=== PATIENT | male | born 1930 | race Caucasian/White ===

== ENCOUNTER 2017-06-13 08:02 | Observation (INO) | payer MEDICARE, BC ==
[~2017-06-13] VITALS: Ht 182.9 cm; Wt 92.1 kg
[~2017-06-13 08:02] MED LIST: ATOR10TA15 PO; AVOD0.5C PO; MULT-65 PO; NAPR220T95 PO; VITA200013 PO
[2017-06-13 08:05] VITALS: BP 221/89; PULSE 78; RESP 18; TEMP 98.4; O2SAT 98
[2017-06-13] MEDS ORDERED: VITA250C3 CHEW (08:19)
[2017-06-13 08:22] VITALS: BP 184/76
[2017-06-13] MEDS ORDERED: TETANUS/DIPHTHERIA TOXOID ADULT 0.5 ML VIAL IM ONE (08:30)
--- NOTE | 2017-06-13 08:36 | PD ---
HPI Chief Complaint: Bite or Sting Time Seen by Provider: 08:14 Travel History International Travel<30 days: No Contact w/Intl Traveler<30days: No Traveled to known affect area: No History of Present Illness HPI 86yo M with PMH of HLD and BPH presents to the ED with c/o possible snake bite 2 days ago. Pt said a brown snake about 1 foot long fell on his right arm 2 days ago. He did not see a skin break until yesterday in his right forearm and it bled after he tried to clean it. Bleeding has stopped. Denies any fever, chest pain, sob, n/v, abdominal pain, focal weakness or numbness. Pt is not up to date on tetanus. Feels a little lightheaded right now. PFSH Past Medical History Cancer: No Cardiovascular Problems: No High Cholesterol: Yes Diabetes: No Diminished Hearing: No Genitourinary: Yes (prostate issues) Immune Disorder: No Musculoskeletal: No Neurologic: No Psychiatric: No Reproductive: No Respiratory: No Thyroid Disease: No Influenza Vaccination: Yes ?: Not Past Surgical History Abdominal Surgery: No Cardiac Surgery: No Ear Surgery: No Endocrine Surgery: No Eye Surgery: Yes Genitourinary Surgery: No Gynecologic Surgery: No Oral Surgery: No Pacemaker: No Thoracic Surgery: No Other Surgery: Yes (CATARACT RIGHT EYE) Social History Alcohol Use: Yes ("A FEW BEERS EVERYDAY") Tobacco Use: No Substance Use: No Allergies-Medications (Allergen,Severity, Reaction): Coded Allergies: No Known Allergies (Unverified , 06/13/17) Reported Meds & Prescriptions Reported Meds & Active Scripts Active Avodart (Dutasteride) 0.5 Mg Cap 0.5 Mg PO DAILY Reported Vitamin C (Ascorbic Acid) 250 Mg Chew 500 Mg CHEW DAILY Atorvastatin (Atorvastatin Calcium) 10 Mg Tab 5 Mg PO HS Multi-Vitamin Daily (Multiple Vitamin) 1 Tab Tab 1 Tab PO DAILY Vitamin D (Cholecalciferol) 2,000 Unit Cap 1 Cap PO DAILY Review of Systems Except as stated in HPI: all other systems reviewed are Neg Physical Exam Narrative GENERAL: 86yo M not in distress. SKIN: Focused skin assessment warm/dry. HEAD: Atraumatic. Normocephalic. EYES: Pupils equal and round. No scleral icterus. No injection or drainage. ENT: No nasal bleeding or discharge. Mucous membranes pink and moist. NECK: Trachea midline. No JVD. CARDIOVASCULAR: Regular rate and rhythm. No murmur appreciated. RESPIRATORY: No accessory muscle use. Clear to auscultation. Breath sounds equal bilaterally. GASTROINTESTINAL: Abdomen soft, non-tender, nondistended. No rebound tenderness or guarding. MUSCULOSKELETAL: Right forearm: +Small skin break with skin discoloration about 3cm by 3cm. No fluctuance. Sensation intact. Forearm compartment soft. Distal pulses intact. NEUROLOGICAL: Awake and alert. No obvious cranial nerve deficits. Motor grossly within normal limits. Normal speech. PSYCHIATRIC: Appropriate mood and affect; insight and judgment normal. Data Data Last Documented VS Vital Signs Date Time Temp Pulse Resp B/P (MAP) Pulse Ox O2 Delivery O2 Flow Rate FiO2 06/13/17 09:15 68 18 143/67 (92) 67 18 162/79 (106) 72 18 166/83 (110) 06/13/17 08:05 98.4 98 Orders Orders Electrocardiogram (06/13/17 ) Blood Glucose (06/13/17 08:22) Tetanus/Diphtheria Tox Adult (Tetanus/Di (06/13/17 08:30) Complete Blood Count With Diff (06/13/17 08:48) Prothrombin Time / Inr (Pt) (06/13/17 08:48) Act Partial Throm Time (Ptt) (06/13/17 08:48) Fibrinogen (06/13/17 08:48) Basic Metabolic Panel (Bmp) (06/13/17 08:54) Orthostatic Blood Pressure (06/13/17 08:54) Admit Order (Ed Use Only) (06/13/17 09:44) Labs Laboratory Tests Test 06/13/17 08:55 White Blood Count 6.2 TH/MM3 Red Blood Count 3.95 MIL/MM3 Hemoglobin 13.0 GM/DL Hematocrit 38.8 % Mean Corpuscular Volume 98.2 FL Mean Corpuscular Hemoglobin 33.0 PG Mean Corpuscular Hemoglobin Concent 33.6 % Red Cell Distribution Width 13.3 % Platelet Count 170 TH/MM3 Mean Platelet Volume 8.7 FL Neutrophils (%) (Auto) 62.7 % Lymphocytes (%) (Auto) 20.3 % Monocytes (%) (Auto) 7.9 % Eosinophils (%) (Auto) 8.3 % Basophils (%) (Auto) 0.8 % Neutrophils # (Auto) 3.9 TH/MM3 Lymphocytes # (Auto) 1.3 TH/MM3 Monocytes # (Auto) 0.5 TH/MM3 Eosinophils # (Auto) 0.5 TH/MM3 Basophils # (Auto) 0.0 TH/MM3 CBC Comment DIFF FINAL Differential Comment Prothrombin Time 10.7 SEC Prothromb Time International Ratio 1.0 RATIO Activated Partial Thromboplast Time 26.2 SEC Fibrinogen 321 mg/dL Blood Urea Nitrogen 17 MG/DL Creatinine 0.87 MG/DL Random Glucose 101 MG/DL Calcium Level 8.7 MG/DL Sodium Level 140 MEQ/L Potassium Level 4.1 MEQ/L Chloride Level 106 MEQ/L Carbon Dioxide Level 27.3 MEQ/L Anion Gap 7 MEQ/L Estimat Glomerular Filtration Rate 83 ML/MIN [facility] Medical Decision Making Medical Screen Exam Complete: Yes Emergency Medical Condition: Yes Interpretation(s) EKG: NSR 68bpm. Normal axis. No ST segment elevation or depression. 1st AV block. Differential Diagnosis Dry snake bike vs. skin break Narrative Course 86yo M with possible snake bike in right forearm. Pt does have some lightheadedness. Orthostatic negative. Tetanus updated. Pt did have an episode of profuse bleeding when he tried to clean it that has stopped. He is not on any anticoagulation. Poison control was contacted for recommendations. The summer clerk recommended to check platelet, coagulation panel and fibrinogen. He recommends observation for 8 hours even if labs were normal and to repeat them and see what the trend is. Labs reviewed, normal platelet. No leukocytosis. BMP unremarkable. Coags normal. Fibrinogen pending. Discussed with patient the recommendations and he agrees with plan. Discussed with Dr. Sutton's PA and accepted to his service. Diagnosis Primary Impression: Snake bite Qualified Codes: W59.11XA - Bitten by nonvenomous snake, initial encounter Admitting Information Admitting Physician Requests: Observation Renetta Platt DO Jun 13, 2017 08:36
[2017-06-13 09:01] LABS: AUTOMATED NEUTROPHIL # 3.9 TH/MM3 (1.8-7.7); BASOPHIL % 0.8 % (0.0-2.0); EOSINOPHIL # 0.5 TH/MM3 (0-0.4); EOSINOPHIL % 8.3 % (0.0-4.0); HEMATOCRIT 38.8 % (39.0-51.0); HEMO FLAGS DIFF FINAL; LYMPH % 20.3 % (9.0-44.0); LYMPHOCYTE # 1.3 TH/MM3 (1.0-4.8); MEAN CELL VOLUME 98.2 FL (80.0-100.0); MEAN CORPUSCULAR HGB CONC 33.6 % (32.0-36.0); MONO % 7.9 % (0.0-8.0); NEUT % 62.7 % (16.0-70.0); PLATELET COUNT 170 TH/MM3 (150-450); RED BLOOD COUNT 3.95 MIL/MM3 (4.50-5.90); RED CELL DISTRIBUTION WIDTH 13.3 % (11.6-17.2); WHITE BLOOD COUNT 6.2 TH/MM3 (4.0-11.0)
[2017-06-13 09:10] LABS: POTASSIUM 4.1 MEQ/L (3.5-5.1)
[2017-06-13 09:12] LABS: BICARBONATE 27.3 MEQ/L (21.0-32.0)
[2017-06-13 09:14] LABS: APTT (PATIENT) 26.2 SEC (24.3-30.1); PROTHROMBIN TIME - PATIENT 10.7 SEC (9.8-11.6)
[2017-06-13 09:15] VITALS: BP_SYST 143; BP_SYST 162; BP_SYST 166; BP_DIAS 67; BP_DIAS 79; BP_DIAS 83; RESP 18
[2017-06-13] MEDS ORDERED: LACTULOSE SYRUP 20 GM/30 ML CUP PO PRN (10:30)
[2017-06-13] MEDS ORDERED: NALOXONE HCL 0.4 MG/ML AMP IV PRN (10:30)
[2017-06-13] MEDS ORDERED: SODIUM CHLORIDE 0.9% FLUSH 10 ML FLUSH IV FLUSH PRN (10:30)
[2017-06-13] MEDS ORDERED: ACETAMINOPHEN 325 MG TAB PO PRN (10:30)
[2017-06-13 10:45] VITALS: BP 160/86; PULSE 65; RESP 20; TEMP 97.2; O2SAT 99
[2017-06-13] MEDS ORDERED: MAGNESIUM HYDROXIDE SUSP 30 ML CUP PO PRN (11:00)
[2017-06-13] MEDS ORDERED: SENNOSIDES 8.6 MG TAB PO PRN (11:00)
[2017-06-13] MEDS ORDERED: ONDANSETRON HCL 4 MG/2 ML VIAL IVP PRN (11:00)
[2017-06-13] MEDS ORDERED: PILL SPLITTER OTHER PRN (11:00)
[2017-06-13] MEDS ORDERED: BISACODYL 10 MG SUPP RECTAL PRN (11:00)
[2017-06-13 15:12] LABS: AUTOMATED NEUTROPHIL # 4.3 TH/MM3 (1.8-7.7); BASOPHIL # 0.1 TH/MM3 (0-0.2); BASOPHIL % 0.7 % (0.0-2.0); EOSINOPHIL # 0.6 TH/MM3 (0-0.4); EOSINOPHIL % 7.5 % (0.0-4.0); HEMATOCRIT 43.6 % (39.0-51.0); HEMO FLAGS DIFF FINAL; LYMPH % 24.7 % (9.0-44.0); LYMPHOCYTE # 1.9 TH/MM3 (1.0-4.8); MEAN CORPUSCULAR HEMOGLOBIN 32.1 PG (27.0-34.0); MEAN CORPUSCULAR HGB CONC 32.5 % (32.0-36.0); MONO % 9.2 % (0.0-8.0); NEUT % 57.9 % (16.0-70.0); PLATELET COUNT 181 TH/MM3 (150-450); RED CELL DISTRIBUTION WIDTH 13.7 % (11.6-17.2); WHITE BLOOD COUNT 7.6 TH/MM3 (4.0-11.0)
[2017-06-13 15:31] LABS: POTASSIUM 4.3 MEQ/L (3.5-5.1)
[2017-06-13 15:33] LABS: APTT (PATIENT) 20.6 SEC (24.3-30.1); INTERNATIONAL NORMALIZED RATIO 0.9 RATIO; PROTHROMBIN TIME - PATIENT 10.3 SEC (9.8-11.6)
[2017-06-13 15:35] LABS: BICARBONATE 24.7 MEQ/L (21.0-32.0)
[2017-06-13 16:00] VITALS: BP 161/74; PULSE 59; RESP 20; TEMP 97.8; O2SAT 100
[2017-06-13 20:00] VITALS: BP 145/72; PULSE 68; RESP 20; TEMP 96; O2SAT 100
[2017-06-13] MEDS: DOCUSATE SODIUM 50 MG/SENNA 8.6 MG TAB PO SCH (20:28)
[2017-06-13] MEDS: FAMOTIDINE 20 MG TAB PO SCH (20:30)
[2017-06-13] MEDS: SODIUM CHLORIDE 0.9% FLUSH 10 ML FLUSH IV FLUSH SCH ×2 (20:30→20:32)
[2017-06-14] VITALS: BP 147/81; PULSE 65; RESP 20; TEMP 96.3; O2SAT 99
[2017-06-14 06:12] LABS: AUTOMATED NEUTROPHIL # 3.6 TH/MM3 (1.8-7.7); BASOPHIL % 0.7 % (0.0-2.0); EOSINOPHIL # 0.5 TH/MM3 (0-0.4); EOSINOPHIL % 8.5 % (0.0-4.0); HEMATOCRIT 39.7 % (39.0-51.0); HEMO FLAGS DIFF FINAL; LYMPH % 23.1 % (9.0-44.0); LYMPHOCYTE # 1.4 TH/MM3 (1.0-4.8); MEAN CELL VOLUME 99.3 FL (80.0-100.0); MEAN CORPUSCULAR HEMOGLOBIN 32.8 PG (27.0-34.0); MEAN CORPUSCULAR HGB CONC 33.1 % (32.0-36.0); MONO % 8.5 % (0.0-8.0); NEUT % 59.2 % (16.0-70.0); PLATELET COUNT 173 TH/MM3 (150-450); RED CELL DISTRIBUTION WIDTH 13.6 % (11.6-17.2)
[2017-06-14 06:20] LABS: POTASSIUM 4.6 MEQ/L (3.5-5.1)
[2017-06-14 06:24] LABS: BICARBONATE 28.8 MEQ/L (21.0-32.0)
[2017-06-14 06:26] LABS: APTT (PATIENT) 26.7 SEC (24.3-30.1); PROTHROMBIN TIME - PATIENT 10.8 SEC (9.8-11.6)
--- NOTE | 2017-06-14 07:38 | HHI.DS ---
Discharge Summary Admission Date Jun 13, 2017 at 09:45 Discharge Date: Jun 14, 2017 Admitting Diagnosis Snake bite (1) BPH (benign prostatic hypertrophy) with urinary obstruction ICD Codes: N40.1 - Benign prostatic hyperplasia with lower urinary tract symptoms; N13.8 - Other obstructive and reflux uropathy Status: Acute (2) Snake bite ICD Codes: W59.11XA - Bitten by nonvenomous snake, initial encounter Status: Acute Brief History A very pleasant 86yo gentleman with PMH of HLD and BPH presents to the ED with c /o possible snake bite 2 days ago. Pt said a brown snake about 1 foot long fell on his right arm 2 days ago. He did not see a skin break until yesterday in his right forearm and it bled after he tried to clean it. Bleeding has stopped. Denies any fever, chest pain, sob, n/v, abdominal pain, focal weakness or numbness. Pt is not up to date on tetanus. Feels a little lightheaded right now. CBC/BMP: 06/14/17 0515 06/14/17 0515 Significant Findings Laboratory Tests Test 06/13/17 08:55 06/13/17 15:03 06/14/17 05:15 Red Blood Count 3.95 MIL/MM3 (4.50-5.90) 4.40 MIL/MM3 (4.50-5.90) 4.00 MIL/MM3 (4.50-5.90) Hematocrit 38.8 % (39.0-51.0) Eosinophils (%) (Auto) 8.3 % (0.0-4.0) 7.5 % (0.0-4.0) 8.5 % (0.0-4.0) Eosinophils # (Auto) 0.5 TH/MM3 (0-0.4) 0.6 TH/MM3 (0-0.4) 0.5 TH/MM3 (0-0.4) Estimat Glomerular Filtration Rate 83 ML/MIN (>89) 78 ML/MIN (>89) 83 ML/MIN (>89) Monocytes (%) (Auto) 9.2 % (0.0-8.0) 8.5 % (0.0-8.0) Activated Partial Thromboplast Time 20.6 SEC (24.3-30.1) PE at Discharge GENERAL: alert and oriented SKIN: Warm and dry. Small area noted on forearm. clean and dry no signs of infection HEAD: Normocephalic. EYES: No scleral icterus. No injection or drainage. NECK: Supple, trachea midline. No JVD or lymphadenopathy. CARDIOVASCULAR: Regular rate and rhythm without murmurs, gallops, or rubs. RESPIRATORY: Breath sounds equal bilaterally. No accessory muscle use. GASTROINTESTINAL: Abdomen soft, non-tender, nondistended. MUSCULOSKELETAL: No cyanosis, or edema. BACK: Nontender without obvious deformity. No CVA tenderness. Hospital Course A very pleasant 86yo M with PMH of HLD and BPH presents to the ED with c/o possible snake bite 2 days ago. Pt said a brown snake about 1 foot long fell on his right arm 2 days ago while he was opening a door. He did not see a skin break until the next day on his right forearm and it bled after he tried to clean it. Bleeding has stopped. Denies any fever, chest pain, sob, n/v, abdominal pain, focal weakness or numbness. Pt is not up to date on tetanus. He did receive his tetanus vaccine and poision control was called. Recommended to obtain coagulation studies with the extra bleeding. PT/PTT and fibrinogen all rachana. Wound site on right arm is clean and dry with no signs of infection. He was instructed to follow up in office in 1 week. Discharge Disposition: Discharge Home Discharge Instructions DIET: Follow Instructions for: As Tolerated, No Restrictions Activities you can perform: Regular-No Restrictions Follow up Referrals: PCP Follow-up - 1 Week @ [facility] Continued Medications: Ascorbic Acid (Vitamin C) 250 Mg Chew 500 MG CHEW DAILY for Nutritional Supplement, #30 TAB 0 Refills Atorvastatin (Atorvastatin) 10 Mg Tab 5 MG PO HS for Cholesterol Management, #30 TAB 0 Refills Cholecalciferol (Vitamin D) 2,000 Unit Cap 1 CAP PO DAILY Dutasteride (Avodart) 0.5 Mg Cap 0.5 MG PO DAILY for BPH, #90 CAP 3 Refills Multiple Vitamin (Multi-Vitamin Daily) 1 Tab Tab 1 TAB PO DAILY for Nutritional Supplement, TAB 0 Refills Additional Information Keep wound site clean and dry. Sandra MarteP Jun 14, 2017 07:38
[2017-06-14 08:00] VITALS: BP 152/81; PULSE 67; RESP 18; TEMP 97.8; O2SAT 100
[2017-06-14] MEDS: SODIUM CHLORIDE 0.9% FLUSH 10 ML FLUSH IV FLUSH SCH (08:26)
[2017-06-14] MEDS: FAMOTIDINE 20 MG TAB PO SCH (08:26)
[2017-06-14] MEDS: DOCUSATE SODIUM 50 MG/SENNA 8.6 MG TAB PO SCH (08:26)
[2017-06-14] MEDS ORDERED: FINASTERIDE 5 MG TAB PO SCH (09:00)
--- NOTE | 2017-06-14 17:54 | EKG ---
Date Performed: 06/13/2017 Time Performed: 08:27:36 PTAGE: 86 years EKG: Sinus rhythm WITH SINUS ARRHYTHMIA WITH FIRST DEGREE AV BLOCK IA interval is slightly increased from the old trac ing ABNORMAL ECG PREVIOUS TRACING : 06/20/2012 15.25 DOCTOR: Jeff Raymond Interpretating Date/Time 06/14/2017 17:53:22
== END 2017-06-14 09:32 | disposition home or self-care (01) ==
LOC: PHED 08:02 → PHEDA 09:45 → PH3B 10:14
PROVIDERS: ADMIT Family Medicine; ATTEND Family Medicine
DX: N40.1 Benign prostatic hyperplasia with lower urinary tract symptoms (principal); N13.8 Other obstructive and reflux uropathy; W59.11XA Bitten by nonvenomous snake, initial encounter; E78.00 Pure hypercholesterolemia, unspecified; I49.8 Other specified cardiac arrhythmias; I44.0 Atrioventricular block, first degree
CPT/HCPCS: 80048; 85025; 85384; 85610; 85730; 90471; 90714; 93005; 99285; G0378